=== PATIENT | female | born 1970 | race African-American/Black ===

== ENCOUNTER 2018-06-08 14:22 | Emergency (ER) | payer BC ==
[~2018-06-08] VITALS: Ht 170.2 cm; Wt 103.9 kg
[2018-06-08 14:58] LABS: HEMATOCRIT 45.1 % (36.0-46.0); MCH 30.9 PG (29.0-34.0); MCHC 35.5 G/DL (30.0-36.0); MCV 87.2 FL (83-99); PLATELET COUNT 236 K/uL (156-360); RBC DIS.WIDTH-CV 12.5 % (11.8-14.6); RBC DIS.WIDTH-SD 39.8 % (39-53); RED BLOOD COUNT 5.17 M/uL (3.80-5.20); WHITE BLOOD COUNT 7.5 K/uL (4.1-10.2)
[2018-06-08 15:03] LABS: ALBUMIN 4.2 g/dL (3.2-4.8); CHLORIDE 105 mEq/L (99-109); POTASSIUM 3.9 mEq/L (3.7-5.4); SODIUM 139 mEq/L (136-147)
[2018-06-08 15:05] LABS: GLUCOSE 123 mg/dL (70-99); TOTAL PROTEIN 7.5 g/dL (6.4-8.3)
[2018-06-08 15:07] LABS: TOTAL BILIRUBIN 0.6 mg/dL (0.0-1.0)
[2018-06-08 15:09] LABS: ALKALINE PHOSPHATASE 31 IU/L (3-129); CREATININE 0.8 mg/dL (0.6-1.3); GFR ESTIMATE (CALCULATED) > 59 mL/min/
[2018-06-08 15:10] LABS: UREA NITROGEN (BUN) 12 mg/dL (9-23)
[2018-06-08 15:11] LABS: AST (GOT) 16 IU/L (2-34)
[2018-06-08 15:12] LABS: ALT (GPT) 16 IU/L (3-49); LIPASE 14 U/L (1.0-51.0)
[2018-06-08 15:18] LABS: QUANTITATIVE HCG < 4.0 MIU/ML
[2018-06-08 16:06] LABS: APPEARANCE CLEAR ((CLEAR)); BILIRUBIN NEGATIVE; BLOOD NEGATIVE; COLOR YELLOW ((YELLOW)); GLUCOSE (STRIP) NEGATIVE; KETONES NEGATIVE; LEUKOCYTES NEGATIVE; NITRITE NEGATIVE; PROTEIN (STRIP) NEGATIVE; SPECIFIC GRAVITY 1.032 (1.000-1.030); UROBILINOGEN 0.2 MG/DL (0.2-1.0)
[2018-06-08] MEDS ORDERED: TRAMADOL HCL50 MG PO (16:55)
[2018-06-08] MEDS ORDERED: MIRALAX17 GM PO (17:03)
[2018-06-08 17:10] VITALS: BP 126/80
== END 2018-06-08 17:14 | disposition home or self-care (01) ==
LOC: EME 14:22
PROVIDERS: Physician Assistant
DX: R10.9 Unspecified abdominal pain (principal); K59.00 Constipation, unspecified
CPT/HCPCS: 74177; 80053; 81003; 83690; 84702; 85027; J1885; J7030